=== PATIENT | female | born 1970 | race Caucasian/White ===

== ENCOUNTER → 2017-08-23 | Outpatient (CLI) | payer OTHER | LOC: FIMAGING 15:43 | PROVIDERS: ATTEND Registered Nurse | DX: Z12.31 Encounter for screening mammogram for malignant neoplasm of breast (principal) ==

== ENCOUNTER → 2017-09-09 | Outpatient (CLI) | payer OTHER ==
[~2017-09-09] MED LIST: IOPAMIDOL (ISOVUE 370) 100 ML BTL IV ONE
== END ==
LOC: CIMAGING 10:58
PROVIDERS: ATTEND Thoracic Surgery (Cardiothoracic Vascular Surgery)
DX: I71.2 Thoracic aortic aneurysm, without rupture (principal)
CPT/HCPCS: 71275-PO; Q9967

== ENCOUNTER 2017-09-10 11:34 | Day surgery (SDC) | payer OTHER ==
[2017-09-10] MEDS ORDERED: NITROGLYCERIN 0.4 MG BTL SL PRN (11:40)
[2017-09-10] MEDS ORDERED: FAMOTIDINE 20 MG TAB PO ONE (11:40)
[2017-09-10] MEDS ORDERED: DIAZEPAM 5 MG TAB PO ONE (11:40)
[2017-09-10] MEDS ORDERED: ACETAMINOPHEN 325 MG TAB PO PRN (11:40)
[2017-09-10] MEDS ORDERED: NS 1,000 ML IV SCH (11:40)
[2017-09-10] MEDS ORDERED: diphenhydrAMINE 25 MG CAP PO ONE ×2 (11:40→12:02)
[2017-09-10] MEDS ORDERED: ASPIRIN EC 325 MG TAB PO ONE ×2 (11:40→12:02)
[2017-09-10] MEDS ORDERED: TEMAZEPAM 15 MG CAP PO PRN (11:40)
[2017-09-10] MEDS ORDERED: DIAZEPAM 5 MG TAB ONE (12:02)
[2017-09-10] MEDS ORDERED: FAMOTIDINE 20 MG TAB ONE (12:02)
--- NOTE | 2017-09-10 12:04 | CPEKG ---
Heart Rate: 70 RR Interval: 857 P-R Interval: 148 QRSD Interval: 98 QT Interval: 428 QTC Interval: 462 P [place]: 71 QRS [place]: 43 T Wave [place]: 67 EKG Severity - BORDERLINE ECG - EKG Impression: SINUS RHYTHM EKG Impression: BORDERLINE R WAVE PROGRESSION, ANTERIOR LEADS Electronically Signed By: Karan Mark 11-Sep-2017 15:59:43
[2017-09-10 12:32] LABS: INR 1.01 (0.83-1.16); PROTIME(PATIENT) 13.5 SEC (12.0-15.0)
[2017-09-10 12:36] LABS: PLATELET COUNT 202 10^3/uL (150-400)
[2017-09-10] MEDS ORDERED: VERAPAMIL 5 MG/2 ML VIAL ONE (12:47)
[2017-09-10] MEDS ORDERED: MIDAZOLAM 2 MG/2 ML VIAL ONE (12:47)
[2017-09-10] MEDS ORDERED: HEPARIN 10,000 UNIT/10 ML MDV (1,000 UNIT/ML) ONE (12:47)
[2017-09-10] MEDS ORDERED: fentaNYL 100 MCG/2 ML INJ ONE (12:47)
[2017-09-10] MEDS ORDERED: LIDOCAINE 1% 300 MG/30 ML SDV ONE (12:47)
[2017-09-10] MEDS ORDERED: IOPAMIDOL (ISOVUE-370) 150 ML BTL IV ONE (12:48)
--- NOTE | 2017-09-10 12:48 | PDPROPOC ---
Sedation Plan of Care Sedation Plan of Care: vital signs stable, mental status noted, patient educated of risks, benefits, alternatives, patient can tolerate sedation ASA Classification: ASA 3 Planned drugs: fentanyl, midazolam Mallampati Score: Class 3 Mallampati Reference Image: Patient passed 3-3-2 rule?: Yes
--- NOTE | 2017-09-10 12:48 | PDHPUP ---
History & Physical Update H&P update statement: This history and physical update is based on an assessment of the patient which was completed after admission or registration (within 24 hours), but prior to the surgery/procedure. H&P update: H&P reviewed & patient examined, no change in patient's condition since H&P completed
--- NOTE | 2017-09-10 14:09 | PDDXCAT ---
Diagnostic Cath Note - . Date: 09/10/17 District Manager: [place] Indication: other (Preoperative diagnostic cath) - Procedure Access: left wrist Procedure: left heart catheterization, coronary angiography, left ventriculogram - Materials Left Heart Cath size: 4F Left Heart Cath materials: JL5.0 (JL6), JR4.0, Terrance's R, other (AL1) - Findings-Left Heart Catheterization LM: The LM is 6mm in size. It trifurcates into an LAD, ramus and circumflex system. LAD: LAD is 4mm in size with ELVER III flow. LCX: The circumflex is 3mm in size with ELVER III flow throughout. RCA: The RCA was visualized nonselectively on LV gram and may arise anonymously and anteriorly. A JR4, Terrance's Right, and AL1 catheters were used and we were unable to perform selective right coronary angiography. Ramus: The ramus is 3mm in size with no evidence of disease and ELVER III flow. EDP: 15mmHg LVEF: low normal at 55%. The visualized portion of the thoracic aorta reveals a very large thoracic aortic aneurysm and 2 sinuses of Valsalva most consistent with a bicuspid aortic valve. Wall motion: There are no wall motion abnormalities. Complications: None. Estimated blood loss: <50ml Closure method: TR Band Assessment: There is no evidence of coronary obstruction. ELVER III flow throughout. Plan: The patient will proceed with surgery to repair the thoracic aortic aneurysm and to replace the bicuspid and severely leaking aortic valve. Intervention: None
[2017-09-10] MEDS ORDERED: ATROPINE SULFATE 1 MG/10 ML SYR IVP PRN (15:34)
[2017-09-10] MEDS ORDERED: ONDANSETRON 4 MG/2 ML VIAL IVP PRN (15:34)
--- NOTE | 2017-09-11 10:02 | GCON ---
[f rep st] CONSULTATION DATE OF CONSULTATION: 09/10/2017 REQUESTING PHYSICIAN: Patient seen at the request of Dr. Alonzo with patient's permission. IMPRESSION: 1. Symptomatic aortic insufficiency with marked increase in end-diastolic dimensions and diminished left ventricular function. 2. 7 cm ascending aorta and root enlargement. 3. Ocular migraines. 4. Status post LASIK surgery. 5. Status post sinus surgery. RECOMMENDATIONS: This patient should undergo resection of aortic root and ascending aorta, potential ly under circulatory arrest for control of distal anastomosis. Her aneurysm measures 7 cm, and is sym ptomatic as far as her aortic insufficiency with dyspnea on exertion and extreme palpitations. Option s include continued observation with 100% mortality and dissection risk which the patient is fully aw are of. We have scheduled her for September 20. She underwent diagnostic left heart cath today which wa s without significant coronary obstruction. Risk of surgery is 1% to 2%. We discussed mechanical and tissue valves, the risks of Coumadin, the need for re-operation, etc. She is in favor of a bioprosthe tic root, and subsequent to have her procedures as needed in the future. We will also replace her asc ending aorta with a Hemashield graft and ligate her left atrial appendage. I did advise that she has diminished LV function with marked enlargement. However, over time this should reduce in size with so me resumption of normal LV function. CHIEF COMPLAINT: A 47-year-old female who presents with no previous medical history and was able to jog 4 miles a day. She has been not feeling well for the last 2 months with dyspnea on exertion of 4 -5 blocks and sense of her heart pounding with fatigue and tiredness. She denies chest pain, although she does describe what appears to be musculoskeletal discomfort in the upper back of a rather week t o 10 days' duration, which is intermittent. She had an echo done on 09/03 which showed ejection fract ion of 50%, bicuspid aortic valve, severe aortic insufficiency, mild MR, trivial TR, LV end-diastolic dimension of 5.8, and a thoracic aorta of greater than 6 cm measuring 7 cm on CAT scan. PAST MEDICAL HISTORY: As stated. PAST SURGICAL HISTORY: Include an , LASIK, and sinus surgery. MEDICATIONS: Emergen-C 1000 mg per day and kirsten food vitamin. ALLERGIES: To molds, pollens, and sulfa which caused anaphylactic reaction. SOCIAL HISTORY: She did have a maternal great-grandmother who during cath for an aortic aneurys m which ruptured. She has no other known family history of connective tissue disorder. REVIEW OF SYSTEMS: At the present time she is comfortable, denying any discomfort or shortness of br eath lying at rest. All 10 systems were interrogated and were unremarkable. PHYSICAL EXAMINATION: HEENT: Normocephalic. SHAREE. EOMI. NECK: Without bruit, adenopathy, or thyrome mindy. HEART: Rate is regular with a systolic/diastolic murmur across the precordium. LUNGS: She does have diminished breath sounds in the left base. Lungs are clear. ABDOMEN: Scaphoid, nontender. Bowel sounds are active. RECTAL AND GENITAL: Deferred. NEUROLOGIC: She is grossly intact. Pedal pulses are 2+ and symmetrical. Cath was reviewed with Dr. Figueroa. No coronary obstructions. He was unable to cannulate the right cor onary artery, but did have flush angiograms of it. CT scan was reviewed. /[id number]/MODL
== END 2017-09-10 18:26 | disposition home or self-care (01) ==
LOC: FCATH 11:34
PROVIDERS: ATTEND Internal Medicine Cardiovascular Disease
PROC: B2111ZZ Fluoroscopy of Multiple Coronary Arteries using Low Osmolar Contrast (ICD-10-PCS; principal; 2017-09-10)
PROC: B2151ZZ Fluoroscopy of Left Heart using Low Osmolar Contrast (ICD-10-PCS; principal; 2017-09-10)
PROC: 4A023N7 Measurement of Cardiac Sampling and Pressure, Left Heart, Percutaneous Approach (ICD-10-PCS; principal; 2017-09-10)
DX: I35.1 Nonrheumatic aortic (valve) insufficiency (principal); Q23.1 Congenital insufficiency of aortic valve; R06.02 Shortness of breath; I71.2 Thoracic aortic aneurysm, without rupture; G43.819 Other migraine, intractable, without status migrainosus
CPT/HCPCS: 93005; 93458; C1769; J1644; J2250; J3010; Q9967

== ENCOUNTER 2017-09-13 05:43 | Inpatient (IN) | payer OTHER ==
[2017-09-13] MEDS ORDERED: SODIUM BICARBONATE 20 MEQ, LIDOCAINE 1% 10 ML in NORMOSOL-R 1,000 ML MISC ONE (06:00)
[2017-09-13] MEDS ORDERED: PHENYLEPHRINE HCL 50 MG in NS 250 ML IV ONE (06:00)
[2017-09-13] MEDS ORDERED: MANNITOL 25% 12.5 GM/50 ML VIAL IVP ONE (06:00)
[2017-09-13] MEDS ORDERED: INSULIN REGULAR HUMAN 100 UNIT in NS 100 ML IV ONE (06:00)
[2017-09-13] MEDS ORDERED: NOREPINEPHRINE BITARTRATE 16 MG in NS 250 ML IV ONE (06:00)
[2017-09-13] MEDS ORDERED: AMINOCAPROIC ACID 5 GM/20 ML VIAL IV ONE (06:00)
[2017-09-13] MEDS ORDERED: ceFAZolin 2 GM/SWFI 2 GM/20 ML SYR IVP ONE (06:02)
[2017-09-13] MEDS ORDERED: CITRATE DEXTROSE SOLN 500 ML BAG MISC ONE (06:02)
[2017-09-13] MEDS ORDERED: MUPIROCIN 2% 22 GM OINT NS ONE (06:02)
[2017-09-13] MEDS ORDERED: LIDOCAINE 1% 5 ML SDV ID PRN (06:02)
[2017-09-13] MEDS ORDERED: PROTAMINE SULFATE 50 MG/5 ML VIAL IVP ONE (06:13)
[2017-09-13] MEDS ORDERED: ALBUMIN 5% 250 ML BOTTLE IV ONE ×2 (06:13→10:44)
[2017-09-13] MEDS ORDERED: NA BICARBONATE 50 MEQ/50 ML VIAL ONE (06:14)
[2017-09-13] MEDS ORDERED: CITRATE DEXTROSE SOLN 500 ML BAG ONE (06:14)
[2017-09-13] MEDS ORDERED: DOPamine/DEXTROSE/250 ML BAG IV ONE (06:14)
[2017-09-13] MEDS ORDERED: CALCIUM CHLORIDE 1 GM/10 ML INJ ONE (06:14)
[2017-09-13] MEDS ORDERED: MILRINONE/DEXTROSE/100 ML BAG IV ONE (06:14)
[2017-09-13] MEDS ORDERED: HEPARIN 10,000 UNIT/10 ML MDV (1,000 UNIT/ML) ONE (06:14)
[2017-09-13] MEDS ORDERED: niCARdipine/NACL/200 ML BAG IV ONE (06:14)
[2017-09-13] MEDS ORDERED: AMIODARONE HCL 150 MG/3 ML VIAL ONE (06:14)
[2017-09-13] MEDS ORDERED: LIDOCAINE 2% 100 MG/5 ML SYR ONE (06:14)
[2017-09-13] MEDS ORDERED: ceFAZolin 1 GM VIAL ONE (06:15)
[2017-09-13] MEDS ORDERED: methylPREDNISolone SOD SUCC 1 GM/8 ML VIAL ONE (06:15)
[2017-09-13] MEDS ORDERED: ADENOSINE 6 MG/2 ML VIAL ONE (06:15)
[2017-09-13] MEDS ORDERED: MAGNESIUM SULFATE 1 GM/2 ML VIAL ONE (06:15)
[2017-09-13] MEDS ORDERED: LR 1,000 ML IV ONE (06:45)
--- NOTE | 2017-09-13 07:00 | PDANEPAE ---
ANE History of Present Illness 47 yo for AVR/aneurysm repair ANE Past Medical History - Cardiovascular History Hx Hypertension: No Hx Arrhythmias: Yes Hx Chest Pain: No Hx Coronary Artery / Peripheral Vascular Disease: No Hx CHF / Valvular Disease: No Hx Palpitations: No Cardiovascular History Comment: AORTIC INSUFF. BICUSPID AORTIC VALVE. THORACIC AORTIC ANEURYSM - Pulmonary History Hx COPD: No Hx Asthma/Reactive Airway Disease: No Hx Recent Upper Respiratory Infection: No Hx Oxygen in Use at Home: No Hx Sleep Apnea: No Sleep Apnea Screening Result - Last Documented: Negative Pulmonary History Comment: ALLERGIES TO POLLENS, MOLDS - ALLERGIC REACTIONS SINUS AND LUNGS - Neurologic History Hx Cerebrovascular Accident: No Hx Seizures: No Hx Dementia: No Neurologic History Comment: OCULAR MIGRAINES - Endocrine History Hx Diabetes: No - Renal History Hx Renal Disorders: No - Liver History Hx Hepatic Disorders: No - Neurological & Psychiatric Hx Hx Neurological and Psychiatric Disorders: No - Cancer History Hx Cancer: No - Congenital Disorder History Hx Congenital Disorders: No - GI History Hx Gastrointestinal Disorders: No - Other Health History Other Health History: NEG - Chronic Pain History Chronic Pain: No - Surgical History Prior Surgeries: RUPTURED ARTERY IN SINUS W/HEAD INJURY AGE 18 W/BALLOONING ANE Review of Systems Review of Systems: - Exercise capacity METS (RN): 4 METS ANE Patient History - Allergies Allergies/Adverse Reactions: Sulfa (Sulfonamide Antibiotics) Allergy (Verified 09/12/17 11:40) RASH,HIVES,DIFFICULTY BREATHING molds Allergy (Uncoded 09/12/17 11:42) CONSTRICTED BREATHING pollens Allergy (Uncoded 09/12/17 11:40) CONSTRICTED BREATHING - Home Medications Home medications: home medication list seen and reviewed Home Medications: Herbals/Supplements -Info Only 1 ea PO DAILY 09/06/17 [Last Taken Unknown] - NPO status NPO Status: no food or drink >8 hours NPO Since - Liquids (Date): 09/12/17 NPO Since - Liquids (Time): 21:00 NPO Since - Solids (Date): 09/12/17 NPO Since - Solids (Time): 20:15 - Anes Hx Anes Hx: no prior problems - Smoking Hx Smoking Status: Former smoker - Family Anes Hx Family Hx Anesthesia Complications: NEG ANE Labs/Vital Signs - Vital Signs Blood Pressure: 133/64 Heart Rate: 74 Respiratory Rate: 16 O2 Sat (%): 95 Height: 5 ft 3 in Weight: 56.155 kg ANE Physical Exam - Airway Neck exam: FROM Mallampati Score: Class 2 Mouth exam: normal dental/mouth exam - Pulmonary Pulmonary: no respiratory distress - Cardiovascular Cardiovascular: regular rate and rhythym - ASA Status ASA Status: III ANE Anesthesia Plan Anesthesia Plan: general endotracheal anesthesia
[2017-09-13] MEDS ORDERED: MIDAZOLAM 2 MG/2 ML VIAL IVP ONE (07:02)
[2017-09-13] MEDS ORDERED: MIDAZOLAM 2 MG/2 ML VIAL ONE (07:02)
[2017-09-13] MEDS ORDERED: AMINOCAPROIC ACID 5 GM/20 ML VIAL ONE (07:19)
[2017-09-13] MEDS ORDERED: SUFentanil 250 MCG/5 ML AMP ONE (07:19)
[2017-09-13] MEDS ORDERED: PROPOFOL/EMULSION 500 MG/50 ML BOTTLE IV ONE ×2 (07:19→09:21)
[2017-09-13] MEDS ORDERED: DEXMEDETOMIDINE HCL 400 MCG in NS 100 ML IV ONE (09:30)
[2017-09-13] MEDS ORDERED: MAGNESIUM SULF 2 GM/WATER 50 ML BAG IV ONE (10:45)
[2017-09-13] MEDS ORDERED: PANTOPRAZOLE SODIUM 40 MG VIAL IVP ONE (11:14)
[2017-09-13] MEDS ORDERED: ACETAMINOPHEN 325 MG TAB PO PRN (11:14)
[2017-09-13] MEDS ORDERED: D50W 25 GM/50 ML SYR IVP PRN (11:14)
[2017-09-13] MEDS ORDERED: ACETAMINOPHEN 650 MG SUPP PR PRN (11:14)
[2017-09-13] MEDS ORDERED: CEPACOL LOZENGE PO PRN (11:14)
[2017-09-13] MEDS ORDERED: MAGNESIUM SULF 2 GM/WATER 50 ML IV ONE (11:14)
[2017-09-13] MEDS ORDERED: SODIUM CL NASAL 45 ML BTL EACHNARE PRN (11:14)
[2017-09-13] MEDS ORDERED: MAGNESIUM HYDROXIDE 30 ML UDCUP PO PRN (11:14)
[2017-09-13] MEDS ORDERED: LACTULOSE 20 GM/30 ML UDCUP PO PRN (11:14)
[2017-09-13] MEDS ORDERED: BISACODYL 10 MG SUPP PR PRN (11:14)
[2017-09-13] MEDS ORDERED: MEPERIDINE 25 MG/ML SYR IVP PRN (11:14)
[2017-09-13] MEDS ORDERED: fentaNYL 100 MCG/2 ML INJ IVP PRN (11:14)
[2017-09-13] MEDS ORDERED: NS 1,000 ML IV SCH (11:15)
[2017-09-13] MEDS ORDERED: INSULIN REGULAR HUMAN 100 UNIT in NS 100 ML IV SCH (11:30)
[2017-09-13] MEDS ORDERED: fentaNYL 25 MCG PATCH TD ONE (12:00)
--- NOTE | 2017-09-13 12:03 | POSTANESTH ---
Post Anesthetic Evaluation Cardiovascular Status: Normal, Stable Respiratory Status: Tx Decrease in SpO2 Level of Consciousness/Mental Status: Can Participate in Eval Pain Control: Adequate, Prn Tx Ordered Nausea/Vomiting Control: Adequate, Prn Tx Ordered Complications Possibly Related to Anesthesia: None Noted
[2017-09-13] MEDS: KETOROLAC 15 MG/1 ML SDV IVP SCH ×3 (12:10→23:43)
[2017-09-13] MEDS ORDERED: SODIUM BICARBONATE 50 MEQ/50 ML SYR ONE (12:18)
[2017-09-13] MEDS ORDERED: SODIUM BICARBONATE 50 MEQ/50 ML SYR IVP ONE (13:00)
[2017-09-13] MEDS ORDERED: ceFAZolin 2 GM/DEXTROSE 100 ML IV SCH (14:00)
[2017-09-13] MEDS: POTASSIUM Cl (KCl) 50 ML IV PRN ×2 (14:48→16:30)
[2017-09-13] MEDS: ceFAZolin 2 GM/SWFI 2 GM/20 ML SYR IVP SCH ×2 (14:56→21:39)
[2017-09-13] MEDS: ALBUMIN 5% 250 ML IV PRN ×2 (15:18→16:19)
[2017-09-13] MEDS: ONDANSETRON 4 MG/2 ML VIAL IVP PRN ×2 (16:18→22:26)
[2017-09-13] MEDS ORDERED: ALBUMIN 5% 250 ML IV ONE ×2 (17:30→19:30)
[2017-09-13] MEDS: METOCLOPRAMIDE 10 MG/2 ML VIAL IVP PRN (18:43)
[2017-09-13] MEDS: MUPIROCIN 2% 22 GM OINT NS SCH (21:32)
[2017-09-13] MEDS: HYDROCODONE/APAP 5/325 TAB PO PRN (21:49)
[2017-09-14] MEDS: HYDROCODONE/APAP 5/325 TAB PO PRN (01:27)
[2017-09-14] MEDS: METOCLOPRAMIDE 10 MG/2 ML VIAL IVP PRN ×2 (01:40→08:17)
[2017-09-14 04:42] LABS: PLATELET COUNT 85 10^3/uL (150-400)
[2017-09-14] MEDS: KETOROLAC 15 MG/1 ML SDV IVP SCH (05:39)
[2017-09-14] MEDS: ceFAZolin 2 GM/SWFI 2 GM/20 ML SYR IVP SCH ×3 (05:39→22:13)
[2017-09-14] MEDS: ONDANSETRON 4 MG/2 ML VIAL IVP PRN (05:44)
[2017-09-14] MEDS: HEPARIN 5,000 UNIT/0.5 ML SYR SC SCH ×3 (05:45→22:10)
--- NOTE | 2017-09-14 07:13 | SOAPPROG ---
SAYDA Progress Note Assessment/Plan: POD#1 Aortic valve/aortic root replacement, Replacement of ascending aorta. Hemodynamically stable - In SR 70-80s with SBP 100-110's - Will start low dose Metoprolol today. - D/c Khushbu. Severe aortic insufficiency - s/p Aortic valve replacement with a bioprosthetic valve - On ASA for thromboembolic prophylaxis. Ascending aortic aneurysm - s/p Replacement of ascending aorta - On ASA for thromboembolic prophylaxis. - Likely due to some type of connective tissue disorder. It was recommended to patient that she should have her siblings evaluated for this. Acute postop blood loss anemia - Slightly symptomatic with H&H 8.2/24.3, however patient is young and hemodynamically stable. - Will hold off on blood transfusion for now. Will check labs in am. - Will start Iron today. Secondary thrombocytopenia due to CPB - Persists with plt count 85 (82). - Will continue to hold SQ Heparin. Will check labs in am. Renal - Function normal with normal renal lytes and good urine output. - D/c abel today. Nausea - Slightly improved. - Will place Scop patch if worsens/persists. Pain - Controlled with Toradol. Disposition - Stable. Transfer to the floor today. Subjective: Patient reports improved nausea and good pain control. Objective: Vital Signs Temp Pulse Resp BP Pulse Ox 35.0 C L 82 14 103/59 L 96 09/13/17 12:30 09/14/17 07:00 09/14/17 07:00 09/14/17 07:00 09/14/17 07:00 Laboratory Results 09/14/17 04:15 09/14/17 04:15 09/13/17 09/14/17 09/15/17 05:59 05:59 06:59 Intake Total 813 Output Total 2435 Balance -1622 Physical Exam - Physical Exam General Appearance: WD/WN, alert, no apparent distress Respiratory: lungs clear, decreased breath sounds (bases) Cardiac/Chest: regular rate, rhythm, other (murmur heard best LSB, sternum stable, sternotomy c/d/i) Abdomen: normal bowel sounds, non-tender, soft Skin: warm/dry Extremities: other (Minimal lower extremity edema) Neuro/Psych: alert, normal mood/affect, oriented x 3 ICD10 Worksheet Patient Problems: Problems Problem Status Onset Bicuspid aortic valve Acute Thoracic aortic aneurysm Acute
[2017-09-14] MEDS: PANTOPRAZOLE SODIUM 40 MG TAB PO SCH (08:17)
[2017-09-14] MEDS: ASPIRIN 81 MG CHEWABLE TAB PO SCH (08:32)
[2017-09-14] MEDS ORDERED: BISACODYL 10 MG SUPP PR PRN (09:11)
[2017-09-14] MEDS ORDERED: POLYETHYLENE GLYCOL 3350 17 GM PKT PO PRN (09:11)
[2017-09-14] MEDS ORDERED: CEPACOL LOZENGE PO PRN (09:11)
[2017-09-14] MEDS ORDERED: HYDROCODONE/APAP 5/325 TAB PO PRN (09:11)
[2017-09-14] MEDS ORDERED: LACTULOSE 20 GM/30 ML UDCUP PO PRN (09:11)
[2017-09-14] MEDS ORDERED: MAGNESIUM HYDROXIDE 30 ML UDCUP PO PRN (09:11)
[2017-09-14] MEDS: KETOROLAC 30 MG/1 ML SDV IVP SCH ×2 (12:30→17:47)
[2017-09-14] MEDS: NEOMY SULF/BACITRAC ZN/POLY 30 GM OINTTUBE TP SCH (12:30)
[2017-09-14] MEDS: MUPIROCIN 2% 22 GM OINT NS SCH ×2 (12:31→22:26)
--- NOTE | 2017-09-14 15:50 | ASMTCMCOM ---
CM Note CM Note Notes: Chart reviewed and patient status reviewed in rounds. 47 year old female s/p AVR with CVS. Plan to transfer to PCU. Per therapies no needs identified CM available should needs arise. Date Signed: 09/14/2017 03:50 PM Electronically Signed By:Frances Mccullough RN
[2017-09-14] MEDS ORDERED: SODIUM CL NASAL 45 ML BTL EACHNARE SCH (21:00)
[2017-09-14] MEDS ORDERED: SENNOSIDES/DOCUSATE SODIUM TAB PO SCH (21:00)
[2017-09-14] MEDS: FERROUS SULFATE 325 MG TAB PO SCH (21:02)
[2017-09-14] MEDS: METOPROLOL TARTRATE 25 MG TAB PO SCH (21:03)
[2017-09-14] MEDS: ONDANSETRON DISINTEGRATING 4 MG TAB PO PRN (22:39)
[2017-09-15] MEDS: HEPARIN 5,000 UNIT/0.5 ML SYR SC SCH ×2 (04:16→07:21)
[2017-09-15] MEDS: traMADol 50 MG TAB PO PRN ×4 (05:28→18:24)
[2017-09-15 05:58] LABS: PLATELET COUNT 89 10^3/uL (150-400)
[2017-09-15] MEDS: SENNOSIDES/DOCUSATE SODIUM TAB PO SCH ×2 (07:58→20:14)
[2017-09-15] MEDS: FERROUS SULFATE 325 MG TAB PO SCH ×2 (07:59→20:15)
[2017-09-15] MEDS: METOPROLOL TARTRATE 25 MG TAB PO SCH ×2 (07:59→20:15)
[2017-09-15] MEDS: ASPIRIN 81 MG CHEWABLE TAB PO SCH (07:59)
[2017-09-15] MEDS: PANTOPRAZOLE SODIUM 40 MG TAB PO SCH (08:00)
[2017-09-15] MEDS: MUPIROCIN 2% 22 GM OINT NS SCH (08:01)
[2017-09-15] MEDS: NEOMY SULF/BACITRAC ZN/POLY 30 GM OINTTUBE TP SCH (08:01)
--- NOTE | 2017-09-15 08:04 | SOAPPROG ---
SAYDA Progress Note Assessment/Plan: POD#2 Aortic valve/aortic root replacement, Replacement of ascending aorta. Hemodynamically stable - In SR 80-90s with SBP 100-130's - Continue Metoprolol. Severe aortic insufficiency - s/p Aortic valve replacement with a bioprosthetic valve - On ASA for antithrombotic prophylaxis. Ascending aortic aneurysm - s/p Replacement of ascending aorta - On ASA for antithrombotic prophylaxis. - Likely due to some type of connective tissue disorder. It was recommended to patient that she should have her siblings evaluated for this. Acute postop blood loss anemia - Asymptomatic with H&H 8.2/24.9 (8.2/24.30). - Will continue to hold off on blood transfusion. Will check labs in am. - Continue Iron. Secondary thrombocytopenia due to CPB - Persists with plt count 89 (85). - Will continue to hold SQ Heparin. - Will check labs in am. - Will cut pacing wires at the skin today. Nausea - Stable with Zofran prn. - Will place Scop patch if worsens/persists. Pain - Controlled with Ultram. Subjective: "I'm feeling better today." Patient reports good pain control. Objective: Vital Signs Temp Pulse Resp BP Pulse Ox 36.8 C 80 13 103/62 98 09/15/17 07:23 09/15/17 07:23 09/15/17 07:23 09/15/17 07:23 09/15/17 07:23 Laboratory Results 09/15/17 05:40 09/15/17 05:40 09/14/17 09/15/17 09/16/17 04:59 05:59 05:59 Intake Total Output Total Balance Physical Exam - Physical Exam General Appearance: WD/WN, alert, no apparent distress Respiratory: lungs clear, other (no wheezing, rhonchi, rales) Cardiac/Chest: regular rate, rhythm (sternum stable, sternotomy c/d/i) Abdomen: normal bowel sounds, non-tender, soft Skin: warm/dry Extremities: other (warm, minimal lower extremity edema) Neuro/Psych: alert, normal mood/affect, oriented x 3 ICD10 Worksheet Patient Problems: Problems Problem Status Onset Bicuspid aortic valve Acute Thoracic aortic aneurysm Acute
[2017-09-15] MEDS: POLYETHYLENE GLYCOL 3350 17 GM PKT PO PRN (20:14)
[2017-09-16] MEDS: ACETAMINOPHEN 325 MG TAB PO PRN ×3 (06:14→20:16)
--- NOTE | 2017-09-16 06:22 | SOAPPROG ---
SOAP Progress Note Assessment/Plan: POD#2: AVR with #23 Magna bioprosthesis, replacement of ascending aorta. Severe aortic insufficiency/asc ao aneurysm s/p AVR with aneurysm repair - Continue BB/ASA - Likely due to connective tissue disorder. It was recommended to patient that she should have her siblings evaluated for this. Acute blood loss anemia - HCT continues to trend lower without active signs of bleeding or significant sxs. - Continue iron Secondary thrombocytopenia due to CPB - Trending higher DVT prophylaxis - Continue SCDs, heparin SQ on hold d/t platelets < 100 Subjective: Denies weakness/lightheadedness. Objective: Vital Signs Temp Pulse Resp BP Pulse Ox 36.9 C 80 18 117/86 H 96 09/16/17 04:00 09/16/17 04:00 09/16/17 04:00 09/16/17 04:00 09/16/17 04:00 Laboratory Results 09/15/17 05:40 09/15/17 05:40 09/15/17 09/16/17 09/17/17 05:59 05:59 05:59 Intake Total 1000 Output Total 1100 Balance -100 Physical Exam - Physical Exam General Appearance: WD/WN, alert, no apparent distress EENT: No scleral icterus (R), No scleral icterus (L) Neck: normal inspection Respiratory: No respiratory distress Cardiac/Chest: regular rate, rhythm Abdomen: non-tender, soft, No distended Skin: normal color, warm/dry Extremities: No pedal edema Neuro/Psych: no motor/sensory deficits, alert, normal mood/affect, oriented x 3 ICD10 Worksheet Patient Problems: Problems Problem Status Onset Bicuspid aortic valve Acute Thoracic aortic aneurysm Acute
[2017-09-16] MEDS ORDERED: POTASSIUM CL 20 MEQ TAB PO ONE (07:32)
[2017-09-16] MEDS ORDERED: FUROSEMIDE 40 MG/4 ML VIAL IVP ONE (07:32)
[2017-09-16] MEDS: POLYETHYLENE GLYCOL 3350 17 GM PKT PO PRN (09:03)
[2017-09-16] MEDS: SENNOSIDES/DOCUSATE SODIUM TAB PO SCH ×2 (09:03→21:49)
[2017-09-16] MEDS: METOPROLOL TARTRATE 25 MG TAB PO SCH ×2 (09:04→20:15)
[2017-09-16] MEDS: PANTOPRAZOLE SODIUM 40 MG TAB PO SCH (09:04)
[2017-09-16] MEDS: FERROUS SULFATE 325 MG TAB PO SCH ×2 (09:06→20:16)
[2017-09-16] MEDS: ASPIRIN 81 MG CHEWABLE TAB PO SCH (09:06)
[2017-09-16] MEDS: NEOMY SULF/BACITRAC ZN/POLY 30 GM OINTTUBE TP SCH (09:07)
--- NOTE | 2017-09-16 10:44 | ASMTCMCOM ---
CM Note CM Note Notes: Patient chart reviewed, progressing with therapies. No needs. Plan outpatient cardiac rehab. CM available should needs arise. Date Signed: 09/16/2017 10:44 AM Electronically Signed By:Frances Mccullough RN
[2017-09-16] MEDS: ONDANSETRON DISINTEGRATING 4 MG TAB PO PRN ×2 (12:54→18:22)
[2017-09-17] MEDS: ACETAMINOPHEN 325 MG TAB PO PRN (05:49)
[2017-09-17] MEDS: SENNOSIDES/DOCUSATE SODIUM TAB PO SCH (07:26)
--- NOTE | 2017-09-17 07:41 | SOAPPROG ---
SOAP Progress Note Assessment/Plan: POD#4: Aortic root replacement with #23 mm Titus Inspiris Resila bioprosthesis in a #26 mm Hemashield conduit with reimplantation of coronary arteries Severe aortic insufficiency/asc ao aneurysm s/p aortic root replacement - Continue BB/ASA - Likely due to connective tissue disorder. It was recommended to patient that she should have her siblings evaluated for this. Acute blood loss anemia - HCT slightly lower this AM without active signs of bleeding or significant sxs. - Continue iron Secondary thrombocytopenia due to CPB - Trending higher DVT prophylaxis - Continue SCDs/heparin SQ Subjective: Denies weakness/lightheadedness. Denies CP/SOB. Objective: Vital Signs Temp Pulse Resp BP Pulse Ox 37.1 C 74 14 104/58 L 95 09/17/17 04:00 09/17/17 04:00 09/17/17 04:00 09/17/17 04:00 09/17/17 04:00 Laboratory Results 09/17/17 05:50 09/16/17 05:50 09/16/17 09/17/17 09/18/17 05:59 05:59 05:59 Intake Total 1350 1000 Output Total 1100 1500 Balance 250 -500 Physical Exam - Physical Exam General Appearance: WD/WN, alert, no apparent distress EENT: No scleral icterus (R), No scleral icterus (L) Neck: normal inspection Respiratory: No respiratory distress Cardiac/Chest: regular rate, rhythm Abdomen: non-tender, soft, No distended Skin: normal color, warm/dry Extremities: No pedal edema Neuro/Psych: no motor/sensory deficits, alert, normal mood/affect, oriented x 3 ICD10 Worksheet Patient Problems: Problems Problem Status Onset Bicuspid aortic valve Acute Thoracic aortic aneurysm Acute
[2017-09-17 08:51] VITALS: BP 103/70; PULSE 82; RESP 17; TEMP 98
[2017-09-17] MEDS: METOPROLOL TARTRATE 25 MG TAB PO SCH (08:51)
[2017-09-17] MEDS: PANTOPRAZOLE SODIUM 40 MG TAB PO SCH (08:51)
[2017-09-17] MEDS: ASPIRIN 81 MG CHEWABLE TAB PO SCH (08:52)
[2017-09-17] MEDS: FERROUS SULFATE 325 MG TAB PO SCH (08:52)
[2017-09-17 09:11] VITALS: O2SAT 87
--- NOTE | 2017-09-17 09:33 | PDHOMEO2F ---
Home Oxygen Face to Face Home Orders: I certify that a physician or a nurse practitioner or physician's learning support assistant has had a suuk-ez-zevu encounter with this patient on the date of this order due to the diagnosis listed, which relates to the primary reason the patient requires home oxygen. Alternative treatments have been tried, or considered, and deemed ineffective. It is anticipated that supplemental oxygen will result in improvement with treatment. Home oxygen qualifying diagnosis: anemia, hypoxemia, atelectasis, hypoventilation Home oxygen secondary diagnosis: s/p aortic root replacement, asc ao repair SpO2 on room air (%): 87 Frequency of home oxygen needed: continuous Home oxygen liters per minute: 1 Home oxygen delivery device: nasal cannula Concentrator: Yes E-tanks for mobility and back up: Yes If ordering portable O2, is the patient mobile in the home?: Yes I certify that, based on these findings, the home oxygen is medically necessary for this patient for the following length of time. Length of time home oxygen needed: 1 month
--- NOTE | 2017-09-17 11:10 | GOP ---
[f rep st] OPERATIVE REPORT DATE OF OPERATION: 09/13/2017 SURGEON: Mateo Swann DO TOUCH UP PAINTER: Martina Mock, PAC ANESTHESIA: Karen Pérez MD. PREOPERATIVE DIAGNOSIS: Ascending aortic root aneurysm with aortic insufficiency. POSTOPERATIVE DIAGNOSIS: Ascending aortic root aneurysm with aortic insufficiency. PROCEDURE PERFORMED: Aortic root replacement with a 23 mm Inspiris bioprosthesis in a 26 mm Hemashie ld graft as a root procedure with reimplantation of coronaries. FINDINGS: Patient presented with a symptomatic aortic insufficiency with the marked enlargement of h er aortic root, appeared to taper to 3 cm at the base of the innominate artery. Plans were made for circulatory arrest in anticipation of hemiarch replacement if necessary. DESCRIPTION OF PROCEDURE: She was consented for surgery, brought to the operating room, intubated, m onitoring lines were placed. She was prepped and draped in sterile classical manner. Transesophagea l echo confirmed severe aortic insufficiency. A sternotomy was performed. She was heparinized. She was cannulated in the transverse arch and righ t atrium. The aorta appeared to taper to near normal size at the innominate artery. There was no pl aque or calcification, and for that reason, I felt that circulatory arrest was likely unwarranted. We then proceeded with cardiopulmonary bypass. We placed a cross-clamp where the aorta was normal in dimensions and administered retrograde cardioplegia initially, followed by antegrade cardioplegia di rectly down the coronary ostia. We then excised a 7 cm ascending aortic root aneurysm with markedly dilated sinuses. The patient was noted to have a trileaflet valve, which was a retracted and fenestr ated. The anulus measured to a 23 mm Inspiris valve. The coronary ostia were developed as buttons. We then used interrupted 2-0 Tycron pledgeted mattress sutures to seat a 23 mm valve inside of a 26 mm Hemashield graft as a conduit. These were secured and BioGlue was applied to the needle holes on the external surface. We then fashioned an ostium for the left and right coronary arteries, which were sutured in place. T he tissue was quite friable and no aortic tissue was left, incorporating suture line up to the ostium of the coronary arteries to avoid late aneurysm formation. These were noted to be perfectly aligned . We then transected the graft in an angled fashion and anastomosed it end-to-end with a continuous running 3-0 Prolene suture, reinforced in several sites with 4-0 Prolene horizontal mattress sutures. We then placed an atrial clip 35 mm across the base of the left atrial appendage prophylactically. The cross-clamp was removed with suction on the ascending aortic vent and LV sump in Trendelenburg. When no further air was identified, the patient was easily weaned from bypass. The heparin was rever sed with protamine. The cannula was removed and oversewn. Two ventricular pacing wires, mediastinal drains were placed. The thymic fat and pericardium were closed over the heart and aorta. The kumar um was closed in a standard fashion. Patient was returned to ICU in stable condition. /[id number]/MODL
--- NOTE | 2017-09-17 11:52 | ASMTLACE ---
LACE Length of stay for Answers: 4-6 days current admission Acuity / Level of Answers: Yes Care: Did the patient have an inpatient admission? Comorbidities - select Answers: Other Notes: aortic aneurysm, AI, BA C all that apply # of Emergency department Answers: 0 visits in the last 6 months Score: 8 Date Signed: 09/17/2017 11:51 AM Electronically Signed By:Keri Soto RN
--- NOTE | 2017-09-17 14:33 | ASDISCHSUM ---
Discharge Information Plan Status:Home with No Needs Medically Cleared to Leave:09/17/2017 Discharge Date:09/17/2017 02:29 PM CM D/C Disposition:Home, Routine, Self-Care ADT D/C Disposition:Home, Routine, Self-Care Projected Discharge Date:09/17/2017 02:29 PM Transportation at D/C:Family Discharge Delay Reason: Follow-Up Date:09/17/2017 02:29 PM Discharge Slot: Final Diagnosis: Placement Information Patient Contact Information Contact Name:COLEARUNNADJA Relationship: Address:[address] Work Phone: City:[place] Alternate Phone: [facility]/Zip Code:[place] [address] Email: Financial Information Financial Class:HMO and PPO Plans Primary Plan Desc:[employer] Primary Plan Number:[id number] Secondary Plan Desc: Secondary Plan Number: Assessment Information [facility] CM Progress Note CM Note CM Note Notes: Chart reviewed and patient status reviewed in rounds. 47 year old female s/p AVR with CVS. Plan to transfer to PCU. Per therapies no needs identified CM available should needs arise. Date Signed: 09/14/2017 03:50 PM Electronically Signed By:Frances Mccullough RN LACE LACE Length of stay for Answers: 4-6 days current admission Acuity / Level of Answers: Yes Care: Did the patient have an inpatient admission? Comorbidities - select Answers: Other Notes: aortic aneurysm, AI, BA C all that apply # of Emergency department Answers: 0 visits in the last 6 months Score: 8 Date Signed: 09/17/2017 11:51 AM Electronically Signed By:Keri Soto RN [facility] CM Progress Note CM Note CM Note Notes: Patient chart reviewed, progressing with therapies. No needs. Plan outpatient cardiac rehab. CM available should needs arise. Date Signed: 09/16/2017 10:44 AM Electronically Signed By:Frances Mccullough RN Case Management Discharge Plan Note Case Management Discharge Discharge Order Complete? Answers: Yes Patient to Obtain Answers: Independently Medications Transportation Arranged Answers: Family/Friends Discharge Comments Notes: 09/17/2017 Case Management Note There are no case management d/c needs identified. Pt to d/c independent with follow up as directed. Date Signed: 09/17/2017 11:53 AM Electronically Signed By:Keri Soto RN Intervention Information
--- NOTE | 2017-09-17 14:43 | ECHO ---
[email or web address] [address] [address] Main: [phone] Fax: Transthoracic Echocardiogram Name: ADRIAN SCOTT MR#: [id number] Study Date: 09/17/2017 Study Time: 10:06 AM Date of : 1970 Age: 47 year(s) Height: 160 cm (63 in.) Weight: 58.06 kg (128 lb.) BSA: 1.6 m2 Gender: Female Examination: Echo Indication: S/P AVR, Magna #23 bioprostesis Image Quality: Contrast: Requested by: Matthew Gambino BP: 103 mmHg/70 mmHg Heart Rate: Rhythm: Indication: S/P AVR, Magna #23 bioprostesis Procedure Staff Chief Catalyst Operator: Efren Anguiano RDCS Reading Physician: Jacoby Joyner MD Requesting Provider: Conclusions: Normal size left ventricle. The ejection fraction is estimated to be 50-55 %. Septal wall motion consistent with post cardiac surgery.. Mild mitral valve regurgitation is present. Normal functioning aortic valve prosthesis. The prosthetic aortic valve is normal. Mild tricuspid regurgitation is present. Trivial pericardial effusion. There is a moderate to large pleural effusion noted.. Measurements: Chambers Valvular Assessment AV/MV Valvular Assessment TV/PV Normal Normal Normal Name Value Range Name Value Range Name Value Range Ao Christina (MM): 2.5 cm (2.2 cm-3.7 AV Vmax: 2.05 m/s (1 m/s-1.7 TR Vmax: 2.21 mm/s ( - ) cm) m/s) TR PGmax: 20 mmHg ( - ) IVSd (2D): 0.7 cm (0.6 cm-1.1 AV maxP mmHg ( - ) syst. PAP: 25 mmHg ( - ) cm) AV meanP mmHg ( - ) PV Vmax: 0.80 m/s (0.6 m/s-0.9 LVDd (2D): 5.1 cm (3.9 cm-5.3 SAFIA (VTI): 1.5 cm ( - ) m/s) cm) MV meanP mmHg ( - ) PV PGmax: 3 mmHg ( - ) LVDs (2D): 3.9 cm (2.1 cm-4 MVA (Vmax): 1.5 m/s ( - ) cm) LVPWd (2D): 0.9 cm ( - ) LVOTd 2.3 cm 2.3 cm mm LVEF (MOD4): 45 % (>=55 %) EF Range: 50-55 % Continued Measurements: Chambers Valvular Assessment AV/MV Valvular Assessment TV/PV Patient: ADRIAN SCOTT Study Date: 09/17/2017 Page 1 of 2 10:06 AM Name Value Name Value Name Value LADs Lon.5 cm MV Annulus: 3.1 cm CVP (est.): 5 mmHg LA Area: 14.5 cm2 MV E' Septal: 0.08 m/s MV VTI: 41.90 cm MR ERO: 0.110 cm2 MR PISA radius: 5 mm MR Reg. Volume: 15 ml MR Reg. Fraction: 5 % Findings: Left Ventricle: Normal size left ventricle. No LV hypertrophy. The ejection fraction is estimated to be 50-55 %. Normal diastolic LV function. Septal wall motion consistent with post cardiac surgery.. Right Ventricle: Normal size right ventricle. Normal RV function. Left Atrium: The left atrium is normal in size. Right Atrium: The right atrium is normal in size. Mitral Valve: The mitral valve is normal in appearance. Mild mitral valve regurgitation is present. Aortic Valve: The aortic valve is a bioprosthesis. Normal functioning aortic valve prosthesis. The prosthetic aortic valve is normal. The AV Vmax 2.2 m/s with a mean PG of 10mmHg. Tricuspid Valve: The tricuspid valve is normal in appearance and function. Mild tricuspid regurgitation is present. The pulmonary artery pressure is normal. Pulmonic Valve: The pulmonic valve is normal in appearance and function. Aorta: There is an aortic root graft.. Pericardium: Trivial pericardial effusion. There is a moderate to large pleural effusion noted.. (No Signature Object) Patient: ADRIAN SCOTT Study Date: 09/17/2017 Page 2 of 2 10:06 AM [id number]
--- NOTE | 2017-09-17 15:34 | PDDCSUM ---
Discharge Summary Discharge Summary: ADMISSION DATE: 09/13/17 DISCHARGE DATE: 09/17/17 ADMISSION DIAGNOSES: 1. Ascending aortic root aneurysm with severe aortic insufficiency DISCHARGE DIAGNOSES: 1. Ascending aortic root aneurysm with severe aortic insufficiency 2. Acute blood loss anemia PROCEDURES 09/13/17, Mateo Swann: 1. Aortic root replacement with a #23 mm Inspiris bioprosthesis in a #26 mm Hemashield graft with reimplantation of coronary arteries HOSPITAL COURSE BY PROBLEM LIST 1. Ascending aortic root aneurysm with severe aortic insufficiency - stable s/p aortic root replacement. Aspirin prescribed for thromboprophylaxis. 2. Acute blood loss anemia - blood transfusion avoided as well-tolerated. Iron continued on discharge. CBC to be checked on follow-up. CONDITION Good DISPOSITION Home, self-care ACTIVITY Pt was instructed on sternal precautions, activity limitations, and which problems to call [facility] with. Please see Discharge Plan in chart for specifics. DISCHARGE MEDICATIONS Continue: Herbals/Supplements -Info Only 1 ea PO DAILY New: Acetaminophen [Tylenol 325mg (*)] 325 - 650 mg PO Q4HRS PRN Aspirin [Aspirin 81mg (*)] 81 mg PO DAILY #30 tab.chew Ferrous Sulfate [Ferrous Sulf 325 MG (*)] 325 mg PO BID Ibuprofen [Advil] 200 mg PO Q6H PRN Metoprolol Tartrate [Lopressor 25 mg (*)] 12.5 mg PO BID PENDING STUDIES/LABS 1. CXR and CBC prior to surgical follow-up FOLLOW-UP 1. Mateo Swann, 09/24/17, 11:45 AM
== END 2017-09-17 14:29 | disposition home or self-care (01) | DRG 220 ==
LOC: F2N 05:43 → F2W 09-14 16:33
PROVIDERS: ADMIT Thoracic Surgery (Cardiothoracic Vascular Surgery); ATTEND Thoracic Surgery (Cardiothoracic Vascular Surgery)
PROC: 02RF08Z Replacement of Aortic Valve with Zooplastic Tissue, Open Approach (ICD-10-PCS; principal; 2017-09-13 07:15)
PROC: 02RX0JZ Replacement of Thoracic Aorta, Ascending/Arch with Synthetic Substitute, Open Approach (ICD-10-PCS; principal; 2017-09-13 07:15)
PROC: B245ZZ4 Ultrasonography of Left Heart, Transesophageal (ICD-10-PCS; principal; 2017-09-13 07:15)
DX: I71.3 Abdominal aortic aneurysm, ruptured (principal); I35.1 Nonrheumatic aortic (valve) insufficiency; D62 Acute posthemorrhagic anemia
CPT/HCPCS: 82947-QW; 97116-GP; 97162-GP; 97165-GO; 97530-GP; 97535-GO; C1768; J0153; J0282; J0690; J1265; J1644; J1815; J1885; J1940; J2001; J2150; J2250; J2260; J2270; J2370; J2405; J2704; J2720; J2765; J2930; J3475; J3480; J7060; P9041

== ENCOUNTER → 2017-09-24 | Outpatient (CLI) | payer OTHER | LOC: FIMAGING 10:37 | PROVIDERS: ATTEND Thoracic Surgery (Cardiothoracic Vascular Surgery) | DX: Z98.890 Other specified postprocedural states (principal); J98.4 Other disorders of lung; Z95.2 Presence of prosthetic heart valve ==

== ENCOUNTER → 2017-10-04 | Outpatient (CLI) | payer OTHER | LOC: FIMAGING 09:13 | PROVIDERS: ATTEND Thoracic Surgery (Cardiothoracic Vascular Surgery) | DX: J98.11 Atelectasis (principal); J90 Pleural effusion, not elsewhere classified; Z95.4 Presence of other heart-valve replacement ==

== ENCOUNTER → 2017-10-14 | Outpatient (CLI) | payer OTHER | LOC: CIMAGING 14:17 | PROVIDERS: ATTEND Thoracic Surgery (Cardiothoracic Vascular Surgery) | DX: Z13.89 Encounter for screening for other disorder (principal) | CPT/HCPCS: 70496-PO ==

== ENCOUNTER → 2017-10-23 | Outpatient (CLI) | payer OTHER | LOC: FIMAGING 11:22 | PROVIDERS: ATTEND Internal Medicine Cardiovascular Disease | DX: J90 Pleural effusion, not elsewhere classified (principal); Z95.2 Presence of prosthetic heart valve ==

== ENCOUNTER 2018-05-14 13:46 | Emergency (ER) | payer OTHER ==
[2018-05-14 15:10] LABS: PLATELET COUNT 244 10^3/uL (150-400)
--- NOTE | 2018-05-14 15:30 | EDPHY ---
H & P Stated Complaint: SOB Time Seen by Provider: 05/14/18 14:55 HPI/ROS: CHIEF COMPLAINT: Shortness of breath HISTORY OF PRESENT ILLNESS: 47-year-old female status post AVR and thoracic aortic aneurysm repair presents with shortness of breath. Onset of a pounding heart rate several weeks ago. The pounding heart rate is intermittent and is not fast or irregular. Occasionally has sharp and stabbing pain on left side of chest in varying locations. Onset of shortness of breath today. The shortness of breath is intermittent and she mainly notices it when she is at rest. No exertional shortness of breath. Able to walk at a brisk gait without symptoms. Called a triage nurse who advised her to go to the emergency department. After the phone call, the patient began to worry and the shortness of breath worsened. Patient queries whether SOB is secondary to anxiety. REVIEW OF SYSTEMS: complete 10 point ROS reviewed and is negative except for the noted elements in the HPI - Medical/Surgical History Hx Asthma: No Hx Chronic Respiratory Disease: No Hx Diabetes: No Hx Cardiac Disease: Yes Hx Renal Disease: No Hx Cirrhosis: No Hx Alcoholism: No Hx HIV/AIDS: No Hx Splenectomy or Spleen Trauma: No Other PMH: aortic valve implant, AAA - Social History Smoking Status: Former smoker Alcohol Use: Sober Drug Use: None Additional Social History: - Physical Exam Exam: General Appearance: Alert, pleasant Eyes: Pupils equal and round, no conjunctival pallor or injection ENT, Mouth: Mucous membranes moist Neck: Normal inspection Respiratory: Lungs are clear to auscultation, no rales Cardiovascular: Regular rate and rhythm Gastrointestinal: Abdomen is soft and nontender Neurological: A&O, nonfocal, normal gait Skin: Warm and dry, no rash Extremities: Nontender, no pedal edema Psychiatric: Mood and affect normal Constitutional: Initial Vital Signs Temperature (C) 37.0 C 05/14/18 13:49 Heart Rate 83 05/14/18 13:49 Respiratory Rate 18 05/14/18 13:49 Blood Pressure 148/81 H 05/14/18 13:49 O2 Sat (%) 96 05/14/18 13:49 O2 Delivery Mode Room Air Allergies/Adverse Reactions: Sulfa (Sulfonamide Antibiotics) Allergy (Verified 05/14/18 13:49) RASH,HIVES,DIFFICULTY BREATHING molds Allergy (Uncoded 05/14/18 13:49) CONSTRICTED BREATHING pollens Allergy (Uncoded 05/14/18 13:49) CONSTRICTED BREATHING Home Medications: Medication Instructions Recorded Herbals/Supplements -Info Only 1 ea PO DAILY 09/06/17 Acetaminophen [Tylenol 325mg (*)] 325 - 650 mg PO Q4HRS PRN tab 09/17/17 Aspirin [Aspirin 81mg (*)] 81 mg PO DAILY #30 tab.chew 09/17/17 Ferrous Sulfate [Ferrous Sulf 325 325 mg PO BID #60 tab 09/17/17 MG (*)] Ibuprofen [Advil] 200 mg PO Q6H PRN #100 tablet 09/17/17 Metoprolol Tartrate [Lopressor 25 12.5 mg PO BID #60 tab 09/17/17 mg (*)] Medical Decision Making - Diagnostics Imaging Results: Imaging Impressions Chest X-Ray 05/14/18 14:50 Impression: 1. Clear lungs. No effusion or edema. 2. Stigmata of previous aortic valve surgery. Imaging: I viewed and interpreted images myself ED Course/Re-evaluation: This patient presents with shortness of breath. Vital signs are normal including oxygen saturation 99% on room air. Stat EKG reveals no evidence of ischemia or dysrhythmia. Chest x-ray is unremarkable. D-dimer is normal. Low risk by Well's criteria; I feel that I can safely exclude acute pulmonary embolism. The patient remained stable throughout her emergency department stay. compliance monitor revealed normal sinus rhythm throughout. I do not feel that further emergency department evaluation is indicated. I feel that she is safe and stable for discharge home. Warning signs discussed. Will follow up with PCP. Differential Diagnosis: Differential diagnosis includes though it is not limited to pneumonia, pneumothorax, pulmonary embolism, aortic dissection, pericarditis, acute coronary syndrome. - Data Points Laboratory Results: Laboratory Results 05/14/18 14:45 05/14/18 14:45 05/14/18 05/14/18 05/14/18 14:47 14:45 14:45 WBC RBC Hgb Hct MCV MCH MCHC RDW Plt Count MPV Neut % (Auto) Lymph % (Auto) Brooks % (Auto) Eos % (Auto) Baso % (Auto) Nucleat RBC Rel Count Absolute Neuts (auto) Absolute Lymphs (auto) Absolute Monos (auto) Absolute Eos (auto) Absolute Basos (auto) Absolute Nucleated RBC Immature Gran % Immature Gran # D-Dimer 0.33 ug/mLFEU ug/mLFEU (0.00-0.50) Sodium 141 mEq/L mEq/L (135-145) Potassium 3.9 mEq/L mEq/L (3.3-5.0) Chloride 105 mEq/L mEq/L (97-110) Carbon Dioxide 26 mEq/l mEq/l (22-31) Anion Gap 10 mEq/L mEq/L (6-14) BUN 10 mg/dL mg/dL (7-23) Creatinine 0.7 mg/dL mg/dL (0.6-1.0) Estimated GFR > 60 Glucose 105 mg/dL H mg/dL (70-100) Calcium 9.6 mg/dL mg/dL (8.5-10.4) POC Troponin I 0.00 ng/mL ng/mL (0.00-0.08) NT-Pro-B Natriuret Pep 261 pg/mL H pg/mL (0-125) 05/14/18 14:45 WBC 8.01 10^3/uL 10^3/uL (3.80-9.50) RBC 4.49 10^6/uL 10^6/uL (4.18-5.33) Hgb 14.5 g/dL g/dL (12.6-16.3) Hct 43.3 % % (38.0-47.0) MCV 96.4 fL fL (81.5-99.8) MCH 32.3 pg pg (27.9-34.1) MCHC 33.5 g/dL g/dL (32.4-36.7) RDW 13.1 % % (11.5-15.2) Plt Count 244 10^3/uL 10^3/uL (150-400) MPV 10.9 fL fL (8.7-11.7) Neut % (Auto) 59.7 % % (39.3-74.2) Lymph % (Auto) 34.3 % % (15.0-45.0) Brooks % (Auto) 4.9 % % (4.5-13.0) Eos % (Auto) 0.5 % L % (0.6-7.6) Baso % (Auto) 0.4 % % (0.3-1.7) Nucleat RBC Rel Count 0.0 % % (0.0-0.2) Absolute Neuts (auto) 4.78 10^3/uL 10^3/uL (1.70-6.50) Absolute Lymphs (auto) 2.75 10^3/uL 10^3/uL (1.00-3.00) Absolute Monos (auto) 0.39 10^3/uL 10^3/uL (0.30-0.80) Absolute Eos (auto) 0.04 10^3/uL 10^3/uL (0.03-0.40) Absolute Basos (auto) 0.03 10^3/uL 10^3/uL (0.02-0.10) Absolute Nucleated RBC 0.00 10^3/uL 10^3/uL (0-0.01) Immature Gran % 0.2 % % (0.0-1.1) Immature Gran # 0.02 10^3/uL 10^3/uL (0.00-0.10) D-Dimer Sodium Potassium Chloride Carbon Dioxide Anion Gap BUN Creatinine Estimated GFR Glucose Calcium POC Troponin I NT-Pro-B Natriuret Pep Point of Care Test Results: Chemistry 05/14/18 14:47 POC Troponin I 0.00 ng/mL ng/mL (0.00-0.08) Departure - Departure Disposition: Home, Routine, Self-Care Clinical Impression: Dyspnea Qualifiers: Dyspnea type: shortness of breath Qualified Code(s): R06.02 - Shortness of breath; R06.00 - Dyspnea, unspecified; R06.01 - Orthopnea Condition: Good Instructions: Dyspnea (ED) Additional Instructions: Return for worsening symptoms or any concerns. Referrals: Christina Telles, RN, CHLORINATOR [Primary Care Provider] - 1-2 days without fail
[2018-05-14 15:51] VITALS: BP 136/74
--- NOTE | 2018-05-17 04:44 | CPEKG ---
Test Reason : OPEN Blood Pressure : / mmHG Vent. Rate : 071 BPM Atrial Rate : 070 BPM P-R Int : 127 ms QRS Dur : 096 ms QT Int : 429 ms P-R-T Axes : 069 061 111 degrees QTc Int : 467 ms Sinus rhythm Probable LVH with secondary repol abnrm Confirmed by Lior Perez ([id number]) on 05/17/2018 4:43:41 AM Referred By: Confirmed By:Lior Perez
== END 2018-05-14 16:12 | disposition home or self-care (01) ==
DX: R06.02 Shortness of breath (principal); Z95.828 Presence of other vascular implants and grafts
CPT/HCPCS: 84484-PO